=== PATIENT | female | born 1980 | race Caucasian/White ===

== ENCOUNTER → 2016-11-30 | Outpatient (CLI) | payer OTHER ==
[~2016-11-30] MED LIST: FERROUS SULFAT325 M2 PO; FISH OIL O1600 MG/5 PO; FOLIC ACID 1MG T1 MG PO; PRENATAL PLUS1 TA1 PO
[2016-12-03 08:38] LABS: HIV Screen 4th Generation wRfx Non Reactive (Non Reactive)
[2016-12-04 08:40] LABS: Hep C Virus Ab <0.1 (0.0-0.9)
[2016-12-04 09:42] LABS: Rapid Plasma Reagin, Quant Non Reactive (NonRea<1:1)
== END ==
LOC: LAB 14:15
PROVIDERS: Obstetrics & Gynecology
DX: Z11.3 Encounter for screening for infections with a predominantly sexual mode of transmission (principal)
CPT/HCPCS: G0432

== ENCOUNTER → 2016-12-28 | Outpatient (CLI) | payer OTHER ==
--- NOTE | 2016-12-28 15:47 | RADIOLOGY REPORT PS360 ---
US PELVIS-TRANSVAGINAL ONLY HISTORY: Follow-up ovarian cyst, pelvic pain, heavy cycles PELVIC PAIN ORDERING PHYSICIAN: Srinivas David MD PATIENT AGE: 36 years COMPARISON: 12/06/2016 FINDINGS: The uterus is 8 x 4 x 5 cm with a combined endometrial thickness of 7 mm. A scar is noted. There are some scattered hyperechoic foci around the edge of the endometrium of questionable clinical significance. The left ovary is 4 x 2.2 cm and contains a 1.7 x 2.8 cm cyst. This previously measured 3.8 x 2 cm. There is some low level echoes within the cyst. The right ovary is 3.7 x 2 cm and contains a 3 x 2.5 cm cyst with internal echoes. This has developed since the previous exam. Small amount fluid present in the cul-de-sac and around the right ovary. IMPRESSION: 1. Complex bilateral ovarian cysts. The right cyst is slightly decreased in size in the left cyst has developed since 12/06/2016. Continued follow-up recommended
== END ==
LOC: RAD 13:45
DX: N94.89 Other specified conditions associated with female genital organs and menstrual cycle (principal); R10.2 Pelvic and perineal pain